=== PATIENT | male | born 1940 | race Caucasian/White ===

== ENCOUNTER → 2018-10-19 | Outpatient (CLI) | payer MEDICARE, BC | END | disposition home or self-care (01) | LOC: HKI 14:59 | DX: M25.561 Pain in right knee (principal); S72.401D Unspecified fracture of lower end of right femur, subsequent encounter for closed fracture with routine healing; X58.XXXD Exposure to other specified factors, subsequent encounter | CPT/HCPCS: 73552; 73562-RT ==

== ENCOUNTER → 2018-11-16 | Outpatient (CLI) | payer MEDICARE, BC | END | disposition home or self-care (01) | LOC: HKI 14:17 | DX: S72.401D Unspecified fracture of lower end of right femur, subsequent encounter for closed fracture with routine healing (principal); X58.XXXD Exposure to other specified factors, subsequent encounter | CPT/HCPCS: G0463 ==

== ENCOUNTER 2019-02-06 08:22 | Day surgery (SDC) | payer MEDICARE, BC ==
[2019-02-06] MEDS: LACTATED RINGER'S 1,000 ML IV (08:55)
[2019-02-06] MEDS ORDERED: DESFLURANE 15 MIN (09:00)
[2019-02-06] MEDS ORDERED: PROPOFOL 20 ML (09:10)
[2019-02-06] MEDS ORDERED: LIDOCAINE 2% (SDV) 5 ML INJ (09:10)
[2019-02-06] MEDS ORDERED: CEFAZOLIN 1 GM INJ (09:10)
[2019-02-06] MEDS ORDERED: HYDROmorphONE 2 MG/ML SYG (09:11)
[2019-02-06] MEDS ORDERED: MIDAZOLAM 1 MG/ML 2 ML INJ (09:17)
[2019-02-06] MEDS ORDERED: FENTAnyl 50 MCG/ML VIAL (09:17)
[2019-02-06] MEDS ORDERED: ROPIVACAINE 0.2% 20 ML VIAL (09:17)
[2019-02-06] MEDS ORDERED: CEFAZOLIN 2 GM/50 ML (PMX) 50 ML IVPB (10:00)
[2019-02-06] MEDS ORDERED: ONDANSETRON 4 MG INJ (10:32)
[2019-02-06] MEDS ORDERED: DEXAMETHASONE 4 MG/ML 5 ML INJ (10:32)
[2019-02-06] MEDS ORDERED: EPHEDrine 25 MG/5 ML SYG (10:33)
[2019-02-06] MEDS ORDERED: SUCCINYLCHOLINE CHLORIDE 100 MG/5 ML SYG IV (10:33)
[2019-02-06] MEDS ORDERED: GLYCOPYRROLATE 0.4 MG INJ (11:02)
[2019-02-06] MEDS: POLYMYXIN/BACITRACIN 1L IRRIG (11:29)
[2019-02-06] MEDS ORDERED: LABETALOL HCL 20MG INJ IV (11:30)
[2019-02-06] MEDS ORDERED: hydrALAzine 20 MG INJ IV (11:30)
[2019-02-06] MEDS ORDERED: EPHEDrine 25 MG/5 ML SYG IV (11:30)
[2019-02-06] MEDS ORDERED: HYDROmorphONE 1 MG/5 ML IV SYRINGE IV ×2 (11:30)
[2019-02-06] MEDS ORDERED: ONDANSETRON 4 MG INJ IV (11:30)
[2019-02-06] MEDS ORDERED: OXYCODONE/ACETAMINOPHEN (5/325) TAB PO (11:30)
[2019-02-06] MEDS: HYDROmorphONE 1 MG/5 ML IV SYRINGE IV (13:19)
[2019-02-06] MEDS: MEPERIDINE 25 MG INJ IV (13:39)
[2019-02-06] MEDS: OXYCODONE/ACETAMINOPHEN (5/325) TAB PO (14:36)
== END 2019-02-06 15:20 | disposition home or self-care (01) ==
LOC: SDS 08:22
DX: T84.84XD Pain due to internal orthopedic prosthetic devices, implants and grafts, subsequent encounter (principal); Y79.3 Surgical instruments, materials and orthopedic devices (including sutures) associated with adverse incidents; Y83.8 Other surgical procedures as the cause of abnormal reaction of the patient, or of later complication, without mention of misadventure at the time of the procedure; M79.661 Pain in right lower leg; I10 Essential (primary) hypertension; E11.9 Type 2 diabetes mellitus without complications
CPT/HCPCS: 20680; 82962; 86850; 86900; 86901; 87070; 87075; 87102; 87116; 88300